=== PATIENT | male | born 1955 | race Hispanic/Latino ===

== ENCOUNTER 2019-12-26 10:51 | Outpatient (RCR) | payer MEDICARE, SELFPAY ==
[2019-10-10 09:39] LABS: Basophils Percent Auto 0.2 % (0.2-1.2); Eosinophils Percent Auto 0.3 % (0-4.4); Hematocrit 41.2 % (42.0-52.0); Hemoglobin 14.3 g/dL (14.0-18.0); Immature Granulocyte Absolute 0.01 K/mm3 (0.00-0.031); Immature Granulocyte Percent A 0.2 % (0-0.5); Immature Platelet Fraction Pct 2.2 % (0.9-11.2); Lymphocytes Absolute Auto 1.11 K/mm3 (0.9-3.2); Lymphocytes Percent Auto 19.1 % (18.3-44.2); Mean Corpuscular HGB Conc 34.7 g/dl (32-36); Mean Corpuscular Hemoglobin 29.2 pg (26-34); Mean Corpuscular Volume 84.1 fl (80-100); Mean Platelet Volume 9.6 fl (7.4-10.4); Monocytes Absolute Auto 0.4 K/mm3 (0.1-0.6); Monocytes Percent Auto 6.6 % (2.6-8.5); Neutrophils Absolute Auto 4.3 K/mm3 (1.3-6.7); Neutrophils Percent Auto 73.6 % (45.5-73.1); Platelet Count Result 130 k/mm3 (150-375); Red Cell Distribution Width 13.1 % (11.5-14.5); White Blood Count 5.8 K/mm3 (4.5-10.0)
[2019-10-10 09:47] LABS: Alanine Aminotransferase 29 U/L (4-50); Albumin Level 4.2 g/dL (3.5-5.1); Alkaline Phosphatase 100 U/L (38-126); Aspartate Amino Transferase 28 U/L (17-59); Blood Urea Nitrogen 19 mg/dL (9-20); Carbon Dioxide 27 mmol/L (22-30); Chloride 104 mmol/L (98-107); Estimated Glomerular Filt Rate > 60; Glucose 213 mg/dL (75-110); Potassium 4.4 mmol/L (3.4-5.0); Sodium 140 mmol/L (137-145)
[2019-10-13 17:37] LABS: Tacrolimus Prograf 2.2 mcg/L
[2019-10-13 23:20] LABS: GGT 18 U/L (3-70)
[2019-12-26 11:29] LABS: Basophils Percent Auto 0.4 % (0.2-1.2); Eosinophils Absolute Auto 0.1 K/mm3 (0-0.3); Hemoglobin 13.7 g/dL (14.0-18.0); Immature Granulocyte Absolute 0.02 K/mm3 (0.00-0.031); Immature Granulocyte Percent A 0.4 % (0-0.5); Immature Platelet Fraction Pct 2.2 % (0.9-11.2); Lymphocytes Absolute Auto 1.47 K/mm3 (0.9-3.2); Lymphocytes Percent Auto 29.5 % (18.3-44.2); Mean Corpuscular HGB Conc 34.3 g/dl (32-36); Mean Corpuscular Hemoglobin 28.6 pg (26-34); Mean Corpuscular Volume 83.5 fl (80-100); Mean Platelet Volume 9.5 fl (7.4-10.4); Monocytes Absolute Auto 0.3 K/mm3 (0.1-0.6); Monocytes Percent Auto 6.8 % (2.6-8.5); Neutrophils Absolute Auto 3.1 K/mm3 (1.3-6.7); Neutrophils Percent Auto 61.9 % (45.5-73.1); Platelet Count Result 138 k/mm3 (150-375); Red Blood Count 4.79 M/mm3 (4.6-6.20); Red Cell Distribution Width 13.5 % (11.5-14.5)
[2019-12-26 11:39] LABS: Alanine Aminotransferase 25 U/L (4-50); Albumin Level 4.2 g/dL (3.5-5.1); Alkaline Phosphatase 83 U/L (38-126); Aspartate Amino Transferase 26 U/L (17-59); Bilirubin,Total 0.9 mg/dL (0.2-1.3); Blood Urea Nitrogen 17 mg/dL (9-20); Calcium 9.1 mg/dL (8.4-10.2); Carbon Dioxide 30 mmol/L (22-30); Chloride 102 mmol/L (98-107); Estimated Glomerular Filt Rate > 60; Glucose 194 mg/dL (75-110); Potassium 4.1 mmol/L (3.4-5.0); Sodium 138 mmol/L (137-145)
[2019-12-29 22:35] LABS: Tacrolimus Prograf 2.6 mcg/L
[2019-12-30 15:26] LABS: GGT 19 U/L (3-70)
== END 2020-01-08 23:59 | disposition home or self-care (01) ==
LOC: ANHLAB 10:51
PROVIDERS: PCP Family Medicine
DX: Z51.81 Encounter for therapeutic drug level monitoring (principal); Z94.4 Liver transplant status; Z79.899 Other long term (current) drug therapy
CPT/HCPCS: 36415; 80053; 80197; 82977; 85025; 85055

== ENCOUNTER 2020-04-29 08:53 | Outpatient (RCR) | payer MEDICARE, SELFPAY ==
[2020-04-29 09:26] LABS: Basophils Percent Auto 0.4 % (0.2-1.2); Eosinophils Absolute Auto 0.1 K/mm3 (0-0.3); Hemoglobin 13.6 g/dL (14.0-18.0); Immature Granulocyte Absolute 0.01 K/mm3 (0.00-0.031); Immature Granulocyte Percent A 0.2 % (0-0.5); Lymphocytes Absolute Auto 1.42 K/mm3 (0.9-3.2); Lymphocytes Percent Auto 28.9 % (18.3-44.2); Mean Corpuscular HGB Conc 34.9 g/dl (32-36); Mean Corpuscular Hemoglobin 29.1 pg (26-34); Mean Corpuscular Volume 83.5 fl (80-100); Mean Platelet Volume 9.4 fl (7.4-10.4); Monocytes Absolute Auto 0.4 K/mm3 (0.1-0.6); Monocytes Percent Auto 7.9 % (2.6-8.5); Neutrophils Percent Auto 61.6 % (45.5-73.1); Platelet Count Result 147 k/mm3 (150-375); Red Blood Count 4.67 M/mm3 (4.6-6.20); Red Cell Distribution Width 13.4 % (11.5-14.5); White Blood Count 4.9 K/mm3 (4.5-10.0)
[2020-04-29 09:42] LABS: Alanine Aminotransferase 25 U/L (4-50); Albumin Level 4.2 g/dL (3.5-5.1); Alkaline Phosphatase 98 U/L (38-126); Aspartate Amino Transferase 23 U/L (17-59); Blood Urea Nitrogen 22 mg/dL (9-20); Carbon Dioxide 28 mmol/L (22-30); Chloride 106 mmol/L (98-107); Estimated Glomerular Filt Rate > 60; Glucose 215 mg/dL (75-110); Potassium 4.3 mmol/L (3.4-5.0); Sodium 141 mmol/L (137-145)
[2020-05-03 12:36] LABS: GGT 23 U/L (3-70)
[2020-05-03 21:58] LABS: Tacrolimus Prograf 2.4 mcg/L
== END 2020-07-28 23:59 | disposition home or self-care (01) ==
LOC: ANHLAB 08:53
PROVIDERS: PCP Family Medicine; Visit Provider Internal Medicine Gastroenterology
DX: Z51.81 Encounter for therapeutic drug level monitoring (principal); Z94.4 Liver transplant status; Z79.899 Other long term (current) drug therapy
CPT/HCPCS: 36415; 80053; 80197; 82977; 85025

== ENCOUNTER 2020-10-29 10:11 | Outpatient (RCR) | payer MEDICARE, SELFPAY ==
[2020-08-06 12:29] LABS: Basophils Percent Auto 0.5 % (0.2-1.2); Eosinophils Percent Auto 0.5 % (0-4.4); Hematocrit 39.6 % (42.0-52.0); Hemoglobin 13.9 g/dL (14.0-18.0); Immature Granulocyte Absolute 0.01 K/mm3 (0.00-0.031); Immature Granulocyte Percent A 0.2 % (0-0.5); Immature Platelet Fraction Pct 2.1 % (0.9-11.2); Mean Corpuscular HGB Conc 35.1 g/dl (32-36); Mean Corpuscular Hemoglobin 29.7 pg (26-34); Mean Corpuscular Volume 84.6 fl (80-100); Mean Platelet Volume 9.5 fl (7.4-10.4); Monocytes Absolute Auto 0.4 K/mm3 (0.1-0.6); Monocytes Percent Auto 6.3 % (2.6-8.5); Neutrophils Absolute Auto 4.1 K/mm3 (1.3-6.7); Neutrophils Percent Auto 67.5 % (45.5-73.1); Platelet Count Result 147 k/mm3 (150-375); Red Blood Count 4.68 M/mm3 (4.6-6.20); Red Cell Distribution Width 13.2 % (11.5-14.5)
[2020-08-06 12:40] LABS: Alanine Aminotransferase 42 U/L (4-50); Albumin Level 4.1 g/dL (3.5-5.1); Alkaline Phosphatase 93 U/L (38-126); Anion Gap 5 mmol/L (8-16); Aspartate Amino Transferase 28 U/L (17-59); Bilirubin,Total 0.7 mg/dL (0.2-1.3); Blood Urea Nitrogen 23 mg/dL (9-20); Calcium 9.1 mg/dL (8.4-10.2); Carbon Dioxide 31 mmol/L (22-30); Chloride 101 mmol/L (98-107); Estimated Glomerular Filt Rate > 60; Glucose 317 mg/dL (75-110); Potassium 4.3 mmol/L (3.4-5.0); Sodium 137 mmol/L (137-145)
[2020-08-09 19:06] LABS: Tacrolimus Prograf 2.3 mcg/L
[2020-08-10 05:46] LABS: GGT 23 U/L (3-70)
[2020-10-29 10:49] LABS: Basophils Percent Auto 0.5 % (0.2-1.2); Eosinophils Percent Auto 0.4 % (0-4.4); Hematocrit 40.9 % (42.0-52.0); Hemoglobin 14.1 g/dL (14.0-18.0); Immature Granulocyte Absolute 0.02 K/mm3 (0.00-0.031); Immature Granulocyte Percent A 0.4 % (0-0.5); Lymphocytes Absolute Auto 1.33 K/mm3 (0.9-3.2); Lymphocytes Percent Auto 23.5 % (18.3-44.2); Mean Corpuscular HGB Conc 34.5 g/dl (32-36); Mean Corpuscular Hemoglobin 28.4 pg (26-34); Mean Corpuscular Volume 82.5 fl (80-100); Mean Platelet Volume 8.9 fl (7.4-10.4); Monocytes Absolute Auto 0.3 K/mm3 (0.1-0.6); Neutrophils Absolute Auto 3.9 K/mm3 (1.3-6.7); Neutrophils Percent Auto 69.2 % (45.5-73.1); Platelet Count Result 144 k/mm3 (150-375); Red Blood Count 4.96 M/mm3 (4.6-6.20); Red Cell Distribution Width 13.4 % (11.5-14.5); White Blood Count 5.7 K/mm3 (4.5-10.0)
[2020-10-29 11:02] LABS: Alanine Aminotransferase 29 U/L (4-50); Albumin Level 4.3 g/dL (3.5-5.1); Alkaline Phosphatase 94 U/L (38-126); Anion Gap 4 mmol/L (8-16); Aspartate Amino Transferase 29 U/L (17-59); Bilirubin,Total 0.9 mg/dL (0.2-1.3); Blood Urea Nitrogen 20 mg/dL (9-20); Calcium 9.2 mg/dL (8.4-10.2); Carbon Dioxide 30 mmol/L (22-30); Chloride 103 mmol/L (98-107); Estimated Glomerular Filt Rate > 60; Glucose 216 mg/dL (75-110); Potassium 4.6 mmol/L (3.4-5.0); Sodium 137 mmol/L (137-145)
[2020-10-29 12:32] LABS: Vitamin D 25 Hydroxy 36.1 ng/mL
[2020-11-03 11:43] LABS: GGT 21 U/L (3-70)
== END 2020-11-04 23:59 | disposition home or self-care (01) ==
LOC: ANHLAB 10:11
PROVIDERS: PCP Family Medicine; Visit Provider Internal Medicine Gastroenterology
DX: Z94.4 Liver transplant status (principal); Z79.899 Other long term (current) drug therapy
CPT/HCPCS: 36415; 80053; 80197; 82306; 82977; 84443; 85025; 85055

== ENCOUNTER 2021-07-08 09:43 | Outpatient (CLI) | payer MEDICARE, SELFPAY ==
[2021-07-08 10:29] LABS: Basophils Percent Auto 0.4 % (0.2-1.2); Eosinophils Percent Auto 0.4 % (0-4.4); Hemoglobin 13.9 g/dL (14.0-18.0); Immature Granulocyte Absolute 0.01 K/mm3 (0.00-0.031); Immature Granulocyte Percent A 0.2 % (0-0.5); Immature Platelet Fraction Pct 2.4 % (0.9-11.2); Lymphocytes Absolute Auto 1.08 K/mm3 (0.9-3.2); Lymphocytes Percent Auto 21.6 % (18.3-44.2); Mean Corpuscular HGB Conc 34.8 g/dl (32-36); Mean Corpuscular Hemoglobin 29.8 pg (26-34); Mean Corpuscular Volume 85.8 fl (80-100); Mean Platelet Volume 9.3 fl (7.4-10.4); Monocytes Absolute Auto 0.3 K/mm3 (0.1-0.6); Monocytes Percent Auto 5.2 % (2.6-8.5); Neutrophils Absolute Auto 3.6 K/mm3 (1.3-6.7); Neutrophils Percent Auto 72.2 % (45.5-73.1); Platelet Count Result 154 k/mm3 (150-375); Red Blood Count 4.66 M/mm3 (4.6-6.20)
[2021-07-08 10:40] LABS: Alanine Aminotransferase 23 U/L (4-50); Albumin Level 4.3 g/dL (3.5-5.1); Alkaline Phosphatase 97 U/L (38-126); Anion Gap 9 mmol/L (8-16); Aspartate Amino Transferase 26 U/L (17-59); Bilirubin,Total 0.7 mg/dL (0.2-1.3); Blood Urea Nitrogen 19 mg/dL (9-20); Calcium 9.1 mg/dL (8.4-10.2); Carbon Dioxide 27 mmol/L (22-30); Chloride 102 mmol/L (98-107); Estimated Glomerular Filt Rate > 60; Glucose 351 mg/dL (65-110); Potassium 4.5 mmol/L (3.4-5.0); Sodium 138 mmol/L (137-145)
[2021-07-08 11:32] LABS: Vitamin D 25 Hydroxy 30.1 ng/mL
[2021-07-11 15:21] LABS: GGT 18 U/L (3-70)
[2021-07-11 18:15] LABS: Tacrolimus Prograf 1.6 mcg/L
== END 2021-07-08 09:44 | disposition home or self-care (01) ==
PROVIDERS: PCP Family Medicine; Referring Provider Internal Medicine Gastroenterology; Visit Provider Internal Medicine Endocrinology, Diabetes & Metabolism
DX: Z94.4 Liver transplant status (principal); Z48.23 Encounter for aftercare following liver transplant; Z51.81 Encounter for therapeutic drug level monitoring; Z79.899 Other long term (current) drug therapy; E11.9 Type 2 diabetes mellitus without complications; E55.9 Vitamin D deficiency, unspecified
CPT/HCPCS: 36415; 80053; 80197; 82306; 82977; 84443; 85025; 85055

== ENCOUNTER 2021-11-27 13:05 | Outpatient (RCR) | payer MEDICARE, SELFPAY ==
[2021-11-27 13:54] LABS: Basophils Percent Auto 0.3 % (0.2-1.2); Eosinophils Percent Auto 0.5 % (0-4.4); Hematocrit 38.3 % (42.0-52.0); Hemoglobin 13.3 g/dL (14.0-18.0); Immature Granulocyte Absolute 0.01 K/mm3 (0.00-0.031); Immature Granulocyte Percent A 0.2 % (0-0.5); Lymphocytes Absolute Auto 1.64 K/mm3 (0.9-3.2); Lymphocytes Percent Auto 27.9 % (18.3-44.2); Mean Corpuscular HGB Conc 34.7 g/dl (32-36); Mean Corpuscular Hemoglobin 29.6 pg (26-34); Mean Corpuscular Volume 85.1 fl (80-100); Mean Platelet Volume 9.7 fl (7.4-10.4); Monocytes Absolute Auto 0.4 K/mm3 (0.1-0.6); Monocytes Percent Auto 6.3 % (2.6-8.5); Neutrophils Absolute Auto 3.8 K/mm3 (1.3-6.7); Neutrophils Percent Auto 64.8 % (45.5-73.1); Platelet Count Result 148 k/mm3 (150-375); Red Cell Distribution Width 13.4 % (11.5-14.5); White Blood Count 5.9 K/mm3 (4.5-10.0)
[2021-11-27 13:56] LABS: Alanine Aminotransferase 25 U/L (4-50); Albumin Level 4.2 g/dL (3.5-5.1); Alkaline Phosphatase 101 U/L (38-126); Anion Gap 4 mmol/L (8-16); Aspartate Amino Transferase 23 U/L (17-59); Bilirubin,Total 0.7 mg/dL (0.2-1.3); Blood Urea Nitrogen 13 mg/dL (9-20); Calcium 8.8 mg/dL (8.4-10.2); Carbon Dioxide 27 mmol/L (22-30); Chloride 104 mmol/L (98-107); Estimated Glomerular Filt Rate > 60; Glucose 256 mg/dL (65-110); Potassium 4.2 mmol/L (3.4-5.0); Sodium 135 mmol/L (137-145)
[2021-11-27 14:38] LABS: Vitamin D 25 Hydroxy 34.4 ng/mL
[2021-11-29 06:31] LABS: GGT 18 U/L (3-70)
[2021-11-29 21:24] LABS: Tacrolimus Prograf 2.9 mcg/L
== END 2022-02-25 23:59 | disposition home or self-care (01) ==
LOC: ANHLAB 13:05
PROVIDERS: PCP Family Medicine; Visit Provider Internal Medicine Endocrinology, Diabetes & Metabolism
DX: E11.9 Type 2 diabetes mellitus without complications (principal); E55.9 Vitamin D deficiency, unspecified; Z79.4 Long term (current) use of insulin; Z79.899 Other long term (current) drug therapy; Z94.4 Liver transplant status
CPT/HCPCS: 36415; 80053; 80197; 82306; 82977; 84443; 85025

== ENCOUNTER 2022-05-05 12:03 | Outpatient (RCR) | payer MEDICARE, SELFPAY ==
[2022-05-05 12:35] LABS: Basophils Percent Auto 0.3 % (0.2-1.2); Eosinophils Percent Auto 0.3 % (0-4.4); Hematocrit 38.2 % (42.0-52.0); Hemoglobin 13.1 g/dL (14.0-18.0); Immature Granulocyte Absolute 0.01 K/mm3 (0.00-0.031); Immature Granulocyte Percent A 0.2 % (0-0.5); Immature Platelet Fraction Pct 3.3 % (0.9-11.2); Lymphocytes Absolute Auto 1.72 K/mm3 (0.9-3.2); Mean Corpuscular HGB Conc 34.3 g/dl (32-36); Mean Corpuscular Volume 84.7 fl (80-100); Mean Platelet Volume 9.2 fl (7.4-10.4); Monocytes Absolute Auto 0.4 K/mm3 (0.1-0.6); Monocytes Percent Auto 6.4 % (2.6-8.5); Neutrophils Absolute Auto 3.8 K/mm3 (1.3-6.7); Neutrophils Percent Auto 63.8 % (45.5-73.1); Platelet Count Result 151 k/mm3 (150-375); Red Blood Count 4.51 M/mm3 (4.6-6.20); Red Cell Distribution Width 14.1 % (11.5-14.5); White Blood Count 5.9 K/mm3 (4.5-10.0)
[2022-05-05 12:42] LABS: Alanine Aminotransferase 18 U/L (6-50); Albumin Level 4.2 g/dL (3.5-5.1); Alkaline Phosphatase 90 U/L (38-126); Anion Gap 4 mmol/L (8-16); Aspartate Amino Transferase 21 U/L (17-59); Bilirubin,Total 0.7 mg/dL (0.2-1.3); Blood Urea Nitrogen 18 mg/dL (9-20); Calcium 8.7 mg/dL (8.4-10.2); Carbon Dioxide 26 mmol/L (22-30); Chloride 109 mmol/L (98-107); Estimated Glomerular Filt Rate > 60; Glucose 170 mg/dL (65-110); Potassium 4.4 mmol/L (3.4-5.0); Sodium 139 mmol/L (137-145)
[2022-05-08 14:59] LABS: Tacrolimus Prograf 2.4 mcg/L
[2022-05-09 04:59] LABS: GGT 14 U/L (3-70)
== END 2022-08-03 23:59 | disposition home or self-care (01) ==
LOC: ANHLAB 12:03
PROVIDERS: PCP Family Medicine; Visit Provider Internal Medicine Gastroenterology
DX: Z94.4 Liver transplant status (principal); Z79.899 Other long term (current) drug therapy
CPT/HCPCS: 36415; 80053; 80197; 82977; 85025; 85055

== ENCOUNTER 2023-03-06 13:53 | Outpatient (RCR) | payer MEDICARE, SELFPAY ==
[2023-03-06 15:27] LABS: Basophils Percent Auto 0.3 % (0.2-1.2); Eosinophils Percent Auto 0.7 % (0-4.4); Hematocrit 39.4 % (42.0-52.0); Hemoglobin 13.5 g/dL (14.0-18.0); Immature Granulocyte Absolute 0.02 K/mm3 (0.00-0.031); Immature Granulocyte Percent A 0.3 % (0-0.5); Immature Platelet Fraction Pct 3.2 % (0.9-11.2); Lymphocytes Absolute Auto 1.84 K/mm3 (0.9-3.2); Lymphocytes Percent Auto 31.7 % (18.3-44.2); Mean Corpuscular HGB Conc 34.3 g/dl (32-36); Mean Corpuscular Hemoglobin 29.3 pg (26-34); Mean Corpuscular Volume 85.5 fl (80-100); Mean Platelet Volume 9.4 fl (7.4-10.4); Monocytes Absolute Auto 0.4 K/mm3 (0.1-0.6); Monocytes Percent Auto 6.2 % (2.6-8.5); Neutrophils Absolute Auto 3.5 K/mm3 (1.3-6.7); Neutrophils Percent Auto 60.8 % (45.5-73.1); Platelet Count Result 153 k/mm3 (150-375); Red Blood Count 4.61 M/mm3 (4.6-6.20); Red Cell Distribution Width 13.9 % (11.5-14.5); White Blood Count 5.8 K/mm3 (4.5-10.0)
[2023-03-06 15:39] LABS: Alanine Aminotransferase 26 U/L (6-50); Albumin Level 4.3 g/dL (3.5-5.1); Alkaline Phosphatase 90 U/L (38-126); Anion Gap 5 mmol/L (8-16); Aspartate Amino Transferase 25 U/L (17-59); Bilirubin,Total 0.7 mg/dL (0.2-1.3); Blood Urea Nitrogen 17 mg/dL (9-20); Calcium 8.7 mg/dL (8.4-10.2); Carbon Dioxide 30 mmol/L (22-30); Chloride 103 mmol/L (98-107); Estimated Glomerular Filt Rate > 60; Glucose 160 mg/dL (65-110); Potassium 4.6 mmol/L (3.4-5.0); Sodium 138 mmol/L (137-145)
[2023-03-09 15:36] LABS: Tacrolimus Prograf 3.7 mcg/L
[2023-03-11 01:47] LABS: GGT 17 U/L (3-70)
== END 2023-06-04 23:59 | disposition home or self-care (01) ==
LOC: ANHLAB 13:53
PROVIDERS: PCP Family Medicine
DX: Z94.4 Liver transplant status (principal); Z79.899 Other long term (current) drug therapy
CPT/HCPCS: 36415; 80053; 80197; 82977; 85025; 85055

== ENCOUNTER 2024-02-03 09:15 | Outpatient (CLI) | payer MEDICARE, SELFPAY ==
[2024-02-03 09:52] LABS: Basophils Percent Auto 0.4 % (0.2-1.2); Eosinophils Percent Auto 0.6 % (0-4.4); Hematocrit 40.6 % (42.0-52.0); Immature Granulocyte Absolute 0.01 K/mm3 (0.00-0.031); Immature Granulocyte Percent A 0.2 % (0-0.5); Lymphocytes Percent Auto 30.9 % (18.3-44.2); Mean Corpuscular HGB Conc 34.5 g/dl (32-36); Mean Corpuscular Hemoglobin 29.1 pg (26-34); Mean Corpuscular Volume 84.4 fl (80-100); Mean Platelet Volume 9.7 fl (7.4-10.4); Monocytes Absolute Auto 0.3 K/mm3 (0.1-0.6); Monocytes Percent Auto 5.6 % (2.6-8.5); Neutrophils Absolute Auto 3.2 K/mm3 (1.3-6.7); Neutrophils Percent Auto 62.3 % (45.5-73.1); Platelet Count Result 152 k/mm3 (150-375); Red Blood Count 4.81 M/mm3 (4.6-6.20); Red Cell Distribution Width 13.7 % (11.5-14.5); White Blood Count 5.2 K/mm3 (4.5-10.0)
[2024-02-03 10:10] LABS: Alanine Aminotransferase 25 U/L (6-50); Albumin Level 4.4 g/dL (3.5-5.1); Alkaline Phosphatase 135 U/L (38-126); Anion Gap 8 mmol/L (4-12); Aspartate Amino Transferase 21 U/L (17-59); Bilirubin,Total 1.2 mg/dL (0.2-1.3); Blood Urea Nitrogen 17 mg/dL (9-20); Calcium 8.9 mg/dL (8.4-10.2); Carbon Dioxide 24 mmol/L (22-30); Chloride 105 mmol/L (98-107); Cholesterol 127 mg/dL (0-200); Estimated Glomerular Filt Rate > 60; Glucose 329 mg/dL (65-110); HDL Direct 43 mg/dL; Sodium 137 mmol/L (137-145); Triglycerides 76 mg/dL (<150)
[2024-02-03 10:21] LABS: LDL Cholesterol Direct 74 mg/dL
[2024-02-03 10:41] LABS: Microalbumin Urine Random 19.8 mg/L (0-16.7)
[2024-02-03 10:43] LABS: Creatinine Urine 295.3 mg/dL; MALB Creatinine Ratio 6.7 mg/g (0-30)
== END 2024-02-03 09:16 | disposition home or self-care (01) ==
PROVIDERS: PCP Family Medicine
DX: E11.22 Type 2 diabetes mellitus with diabetic chronic kidney disease (principal); Z79.4 Long term (current) use of insulin; E55.9 Vitamin D deficiency, unspecified
CPT/HCPCS: 36415; 80053; 80061; 82043; 82306; 84443; 85025

== ENCOUNTER 2024-05-08 09:27 | Outpatient (RCR) | payer MEDICARE, SELFPAY ==
[2024-05-08 09:56] LABS: Hematocrit 37.5 % (42.0-52.0); Hemoglobin 13.2 g/dL (14.0-18.0); Mean Corpuscular HGB Conc 35.2 g/dl (32-36); Mean Corpuscular Hemoglobin 29.7 pg (26-34); Mean Corpuscular Volume 84.5 fl (80-100); Mean Platelet Volume 9.6 fl (7.4-10.4); Platelet Count Result 131 k/mm3 (150-375); Red Blood Count 4.44 M/mm3 (4.6-6.20); Red Cell Distribution Width 13.4 % (11.5-14.5); White Blood Count 3.9 K/mm3 (4.5-10.0)
[2024-05-08 10:15] LABS: Alanine Aminotransferase 15 U/L (6-50); Albumin Level 4.2 g/dL (3.5-5.1); Alkaline Phosphatase 95 U/L (38-126); Anion Gap 11 mmol/L (4-12); Aspartate Amino Transferase 19 U/L (17-59); Bilirubin,Total 0.9 mg/dL (0.2-1.3); Blood Urea Nitrogen 16 mg/dL (9-20); Calcium 8.6 mg/dL (8.4-10.2); Carbon Dioxide 26 mmol/L (22-30); Chloride 100 mmol/L (98-107); Estimated Glomerular Filt Rate > 60; Glucose 264 mg/dL (65-110); Potassium 4.1 mmol/L (3.4-5.0); Sodium 137 mmol/L (137-145)
[2024-05-11 09:14] LABS: Tacrolimus Prograf 3.9 mcg/L
[2024-05-11 13:12] LABS: GGT 13 U/L
== END 2024-08-06 23:59 | disposition home or self-care (01) ==
LOC: ANHLAB 09:27
PROVIDERS: PCP Family Medicine; Visit Provider Internal Medicine Gastroenterology
DX: Z94.4 Liver transplant status (principal)
CPT/HCPCS: 36415; 80053; 80197; 82977; 85027

== ENCOUNTER 2025-01-01 09:27 | Outpatient (RCR) | payer MEDICARE, MEDICAID, SELFPAY ==
[2024-12-04 11:12] LABS: Basophils Percent Auto 0.4 % (0.2-1.2); Eosinophils Absolute Auto 0.1 K/mm3 (0-0.3); Eosinophils Percent Auto 2.4 % (0-4.4); Hematocrit 39.9 % (42.0-52.0); Hemoglobin 14.3 g/dL (14.0-18.0); Immature Granulocyte Absolute 0.01 K/mm3 (0.00-0.031); Immature Granulocyte Percent A 0.2 % (0-0.5); Immature Platelet Fraction Pct 3.4 % (0.9-11.2); Lymphocytes Absolute Auto 1.22 K/mm3 (0.9-3.2); Lymphocytes Percent Auto 22.3 % (18.3-44.2); Mean Corpuscular HGB Conc 35.8 g/dl (32-36); Mean Corpuscular Hemoglobin 30.1 pg (26-34); Mean Platelet Volume 10.3 fl (7.4-10.4); Monocytes Absolute Auto 0.7 K/mm3 (0.1-0.6); Neutrophils Absolute Auto 3.4 K/mm3 (1.3-6.7); Neutrophils Percent Auto 61.7 % (45.5-73.1); Platelet Count Result 101 k/mm3 (150-375); Red Blood Count 4.75 M/mm3 (4.6-6.20); Red Cell Distribution Width 13.2 % (11.5-14.5); White Blood Count 5.5 K/mm3 (4.5-10.0)
[2024-12-04 12:18] LABS: Alanine Aminotransferase 22 U/L (6-50); Alkaline Phosphatase 93 U/L (38-126); Anion Gap 12 mmol/L (4-12); Aspartate Amino Transferase 26 U/L (17-59); Bilirubin,Total 0.8 mg/dL (0.2-1.3); Blood Urea Nitrogen 18 mg/dL (9-20); Calcium 8.9 mg/dL (8.4-10.2); Carbon Dioxide 22 mmol/L (22-30); Chloride 101 mmol/L (98-107); Estimated Glomerular Filt Rate > 60; Glucose 387 mg/dL (65-110); Potassium 3.9 mmol/L (3.4-5.0); Sodium 135 mmol/L (137-145)
[2024-12-05 04:19] LABS: GGT 20 U/L (3-70)
[2024-12-07 15:29] LABS: Tacrolimus Prograf 1.6 mcg/L
[2025-01-01 10:41] LABS: Alanine Aminotransferase 23 U/L (6-50); Albumin Level 4.2 g/dL (3.5-5.1); Alkaline Phosphatase 101 U/L (38-126); Anion Gap 11 mmol/L (4-12); Aspartate Amino Transferase 22 U/L (17-59); Bilirubin,Total 1.2 mg/dL (0.2-1.3); Blood Urea Nitrogen 15 mg/dL (9-20); Carbon Dioxide 26 mmol/L (22-30); Chloride 103 mmol/L (98-107); Estimated Glomerular Filt Rate > 60; Glucose 275 mg/dL (65-110); Potassium 4.6 mmol/L (3.4-5.0); Sodium 140 mmol/L (137-145)
[2025-01-01 11:05] LABS: Basophils Percent Auto 0.4 % (0.2-1.2); Eosinophils Percent Auto 0.7 % (0-4.4); Hematocrit 40.4 % (42.0-52.0); Hemoglobin 13.8 g/dL (14.0-18.0); Immature Granulocyte Absolute 0.02 K/mm3 (0.00-0.031); Immature Granulocyte Percent A 0.4 % (0-0.5); Lymphocytes Percent Auto 29.1 % (18.3-44.2); Mean Corpuscular HGB Conc 34.2 g/dl (32-36); Mean Corpuscular Hemoglobin 29.1 pg (26-34); Mean Corpuscular Volume 85.1 fl (80-100); Monocytes Absolute Auto 0.4 K/mm3 (0.1-0.6); Monocytes Percent Auto 6.9 % (2.6-8.5); Neutrophils Absolute Auto 3.4 K/mm3 (1.3-6.7); Neutrophils Percent Auto 62.5 % (45.5-73.1); Platelet Count Result 153 k/mm3 (150-375); Red Blood Count 4.75 M/mm3 (4.6-6.20); Red Cell Distribution Width 13.4 % (11.5-14.5); White Blood Count 5.5 K/mm3 (4.5-10.0)
[2025-01-02 04:37] LABS: GGT 21 U/L (3-70)
[2025-01-04 15:34] LABS: Tacrolimus Prograf 3.9 mcg/L
== END 2025-03-04 23:59 | disposition home or self-care (01) ==
LOC: ANHLAB 09:27
PROVIDERS: PCP Family Medicine; Visit Provider Internal Medicine Gastroenterology
DX: Z79.899 Other long term (current) drug therapy (principal); Z94.4 Liver transplant status
CPT/HCPCS: 36415; 80053; 80197; 82977; 85025; 85055

== ENCOUNTER 2025-06-05 08:33 | Outpatient (RCR) | payer MEDICARE, MEDICAID, SELFPAY ==
[2025-06-05 09:07] LABS: Hematocrit 41.8 % (42.0-52.0); Hemoglobin 14.3 g/dL (14.0-18.0); Immature Granulocyte Percent A 0.2 % (0-0.5); Immature Platelet Fraction Pct 2.8 % (0.9-11.2); Lymphocytes Absolute Auto 1.28 K/mm3 (0.9-3.2); Mean Corpuscular HGB Conc 34.2 g/dl (32-36); Mean Corpuscular Hemoglobin 29.4 pg (26-34); Mean Corpuscular Volume 85.8 fl (80-100); Nucleated Red Blood Cells Absolute Auto 0.000 K/mm3 (0.0-0.012); Nucleated Red Blood Cells Perc 0.0 % (0.0-0.2); Platelet Count Result 147 k/mm3 (150-375); Red Blood Count 4.87 M/mm3 (4.6-6.20); White Blood Count 4.6 K/mm3 (4.5-10.0)
[2025-06-05 09:28] LABS: Alanine Aminotransferase 41 U/L (6-50); Albumin Level 4.4 g/dL (3.5-5.1); Alkaline Phosphatase 100 U/L (38-126); Anion Gap 9 mmol/L (4-12); Aspartate Amino Transferase 33 U/L (17-59); Bilirubin,Total 1.0 mg/dL (0.2-1.3); Blood Urea Nitrogen 32 mg/dL (9-20); Calcium 9.0 mg/dL (8.4-10.2); Carbon Dioxide 26 mmol/L (22-30); Chloride 104 mmol/L (98-107); Estimated Glomerular Filt Rate > 60; Glucose 285 mg/dL (65-110); Potassium 4.8 mmol/L (3.4-5.0); Sodium 139 mmol/L (137-145); Total Protein 7.7 g/dL (6.3-8.2)
[2025-06-06 09:07] LABS: GGT 22 IU/L (0-65)
[2025-06-09 03:07] LABS: Tacrolimus (FK506), Blood 3.2 ng/mL (5.0-20.0)
== END 2025-09-03 23:59 | disposition home or self-care (01) ==
LOC: ANHLAB 08:33
PROVIDERS: PCP Family Medicine; Visit Provider Internal Medicine Gastroenterology
DX: Z51.81 Encounter for therapeutic drug level monitoring (principal); Z79.899 Other long term (current) drug therapy; Z94.4 Liver transplant status
CPT/HCPCS: 36415; 80053; 80197; 82306; 82607; 82977; 84439; 84443; 84481; 85025; 85055; 86376

== ENCOUNTER 2025-06-05 08:38 | Outpatient (CLI) | payer MEDICARE, MEDICAID, SELFPAY ==
--- OUTSIDE RECORDS SUMMARY | 2025-06-05 08:43 | XMS_ITS | Continuity of Care Document ---
Author Organization [facility] Address [address] [place] [address] Phone Care Team Providers Care Supervisor Benzene Refining Name Role Phone Bradley Munson MD Unavailable Unavailable Allergies, Adverse Reactions, Alerts Substance Reaction Status Criticality No Known Allergies Active No Inform ation Medications Medication Instructions Dosage Effective Dates (start - stop) Status Comments Januvia 100 mg tablet take 1 tablet by o ral route every day 100 MG - Active Lantus Solostar 100 unit/mL (3 mL) subcutaneous insulin pen inject by subcutaneous route as per insulin protocol 0.00 - Active Procedures Procedure Date OFFICE/OUTPATIENT VISIT, [facility] OFFICE/OUTPATIENT VISIT, [facility] Advance Directives Directive Yes / No Effective Date File Name No Information Encounters Encounter Description Practice Location Reason(s) For Visit Diagnoses Date Provider Providers Copied on Encounter OFFICE/OUTPA TIENT VISIT, [facility], [address] [place], [id number], tel:[phone] [facility], [place] renal injury1 (chief complaint) DM1 (chief complaint) platelet (chief complaint) ThrombocytopeniaTyp e 2 diabetes mellitus w/o complicationChronic kidney disease, stage 3 (moderate) 5 Arpit Huerta. [address], [place], [id number] , [place]. tel:[phone] Referring Provider: Bradley Munson, [address] [place] [address], [id number]. tel:[phone] OFFICE/OUTPA TIENT VISIT, [facility], [address] [employer] [place], [place], [id number], tel:[phone] [facility] abd pain (chief complaint) anemia (chief complaint) LFT (chief complaint) DM (chief complaint) Dietary surveillance and counselingBrittle diabetesAnemiaDiarr shreya Sep-2 5 Arpit Huerta. [address], [address], [place], [place], [id number] , [place]. tel:[phone] Referring Provider: Sarah Richardson [address], [place], [place], [id number]. tel:[phone] Family History Family Member Type Diagnosis Age At Onset Mother Problem (finding) Alive and well Father Problem (finding) of unkonwn reason Brother Problem (finding) Alive and well Payers Payer name Insurance type Covered democrat ID Authoriza tion(s) No Information Social History Type Description Quantity Date Captured Comments Alcohol Use Details No Caffeine Use Details Unknown Tobacco Use Status Never smoked tobacco 2014 Smoking Status Never smoker Sex Female Vital Signs Date / Time: Height Weight BMI Pulse Rate Blood Pressure Temperature Respiratory Rate Body Surface Area Head Circumference BMI percentile Pulse Ox Inhaled Ox 11:57 AM 167.64 cm 178.00 lbs 28.7 3 kg/m eter (2) 63 /min 117/73 mm[Hg] 98.2 F 16 /min Chief Complaint And Reason For Visit From encounter dated '08/15/2015 09:30'. renal injury1 (chief complaint). Description: Pt has been having a lot of diarrhea an vomting and he ended with prerenal injury and was admited to [facility] with IVF fluid. He also has elevated LFT . Pt was found to be anemic but his lab test prior to hospitalization was ok. Pt denies any vomting or diarrhea now. Pt is drinking water and eating ok DM1 (chief complaint). Description: Pt takes lantus and novolog and januvia and his A1c is wellc ontrolled. Pt states that his BG is around 80-130s. Pt denies any hypoglcyemia platelet (chief complaint). Description: Pt has mildly low platelet. Pt denies any bruinsnig or bleeding Plan Of Treatment Date Type Action Status Referral Ordered: Carlin Alexandra (related to Chronic kidney disease, stage 3 (moderate)) ordered Referral Referred To: Carlin Alexandra [address] [facility] [address] [place], [place], [phone] Ordered: Referrals: Carlin Alexandra. Evaluate and treat ordered History Of Present Illness Encounter Date Complaint History Of Prese nt Illness DM1 Pt takes lantus and novolog and januvia and his A1c is wellc ontrolled. Pt states that his BG is around 80-130s. Pt denies any hypoglcyemia platelet Pt has mildly lo w platelet. Pt denies any bruinsnig or bleeding renal injury1 Pt has been havi ng a lot of diarrhea an vomting and he ended with prerenal injury and was admited to [facility] with IVF fluid. He also has elevated LFT . Pt was found to be anemic but his lab test prior to hospitalization was ok. Pt denies any vomting or diarrhea now. Pt is drinking water and eating ok abd pain Pt has complicat ed history. 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 Pt recently admited to hospital for diarrhea. His Ct benign and also his stool cutlure is negative. Pt is on cipro and flaygl. His diarrhea resolved now. Pt denies any abd pain anemia Additional infor mation: Pt is mildly anemic on lab. Pt denies any GI blood loss. LFT He has mildly el evated LFT. He does not have hepatitis. PT denies any abd pain now. DM Pt has DM. Pt ta kes alnatus and novolog and also januvia. Pt sees endo at [facility]. He states that his BG is around 80-100. He denies any numbnes Instructions Date Instruction Additional Infor mation Prescribed Activity and Exercise Education Related to Dietary Surveillance and Counseling Prescribed Diet Educ ation/Lifestyle Education Regarding Diet Related to Dietary Surveillance and Counseling Assessments Type Assessment Date assessment Thrombocytopenia assessment Type 2 diabetes mellitus w/o com plication Oct-26-2015 assessment Chronic kidney disease, stage 3 (moderate) Mental Status Date Cognitive Assessment Orientation - Isabela ed to time, place, person, situation.
--- OUTSIDE RECORDS SUMMARY | 2025-06-05 08:44 | XMS_ITS | Clinical Summary ---
Author Organization [facility] Address [address] [place] [address] Phone Care Team Providers Care Sales Merchandise Associate Name Role Phone Kaylan Alejandre MD Primary Care Provider + Sarah Macias MD Unavailable [phone] Dang Flores RN Unavailable [phone] Allergies No known active allergies Medications aspirin 81 mg tablet TAKE ONE TABLET BY MOUTH EVERY DAY DIRECTED . 04/19/20 11 Active ergocalciferol, vitamin D2, (VITAMIN D2 ORAL) Take by mouth 25mcg qd Active Ultra Thin Lancets 30 gauge misc USE TO TEST BLOOD SUGAR THREE TIMES DAILY 08/24/20 23 Active blood glucose diagnostic (glucose blood) stripIndication s:Type 2 diabetes mellitus with chronic kidney disease, with long-term current use of insulin, unspecified CKD stage (HCC) Use to test blood sugar 3 times daily 300 each 3 01/06/20 25 Active blood glucose diagnostic (glucose blood) stripIndication s:Type 2 diabetes mellitus with chronic kidney disease, with long-term current use of insulin, unspecified CKD stage (HCC) Use to test blood sugar 3 times daily 300 strip 3 01/06/20 25 Active blood-glucose meter (True Metrix Glucose Meter) miscIndications :Type 2 diabetes mellitus with chronic kidney disease, with long-term current use of insulin, unspecified CKD stage (HCC) USE TO TEST BLOOD SUGAR THREE TIMES DAILY 1 each 01/06/20 25 Active insulin aspart niacinamide (FIASP) 100 unit/mL vial for injectionIndica tions:Type 2 diabetes mellitus with hyperglycemia, with long-term current use of insulin (HCC) Inject Fiasp to base of 8 units with meal + sliding scale of 1:25 > 150 mg/dL. Max daily dose 45 units daily 50 mL 6 01/06/20 25 Active lancets miscIndications :Type 2 diabetes mellitus with chronic kidney disease, with long-term current use of insulin, unspecified CKD stage (HCC) Use the lancets to check blood sugar 3 times daily 300 each 3 01/06/20 25 Active LANTUS 100 unit/mL vial for injectionIndica tions:Type 2 diabetes mellitus with hyperglycemia, with long-term current use of insulin ([facility]) ADMINISTER 34 UNITS UNDER THE SKIN DAILY. 40 mL 3 01/06/20 25 Active SITagliptin phosphate (Januvia) 100 mg tabletIndicatio ns:Controlled type 2 diabetes mellitus with chronic kidney disease, with long-term current use of insulin, unspecified CKD stage TAKE 1 TABLET BY MOUTH DAILY 30 tablet 04/06/20 25 Active tacrolimus 1 mg immediate-relea se capsuleIndicati ons:Encounter for aftercare following liver transplant ([facility]) Take 3 capsules (3 mg total) by mouth 2 (two) times a day 540 capsule 3 04/12/20 25 Active insulin syringe-needle U-100 (BD Insulin Syringe Ultra-Fine) 0.5 mL 31 gauge x 5/16 syringeIndicati ons:Type 2 diabetes mellitus without complication, with long-term current use of insulin ([facility]) USE TO INJECT INSULIN 4 TIMES DAILY 360 each 3 05/24/20 25 Active insulin syringe-needle U-100 0.5 mL 31 gauge x 5/16 syringeIndicati ons:Type 2 diabetes mellitus without complication, with long-term current use of insulin ([facility]) Use 4 times daily 360 each 3 08/13/20 23 025 Discontinued Active Problems Patient Care Coordination No te Formatting of this note migh t be different from the original. Per call with Jessika 08/27/23 pt prefers you call her or marybel with updates/requests. Per Jessika pt does not require an curtain mender the majority of the time. Will leave 08/28/23 appt marked as needing one until able to clarify with provider. Lab Name: [facility] Phone: Timeframe orders are good for: 1 year Last orders sent to lab on: 12/01/2024 ([place]) Standing order: CBC w/diff, CMP, GGT, Tacrolimus Bi-weekly Problem Noted Date Diagnosed Date Encounter for long-term (cur rent) use of high-risk medication 08/22/2022 Has immunity to COVID-19 virus 08/22/2021 Overview (08/22/2021): Pfizer vaccine 05/11/2021, 01/29/2021 Assessment & Plan (09/17/2022 8:24 AM DIRECTOR OF MARKET RESEARCH): Fully vaccinated, eligible for booster. Assessment & Plan (08/22/2021 7:56 AM CDT): Pfizer vaccine 05/11/2021, 01/29/2021 Thrombocytopenia 03/25/2020 Anemia 03/25/2020 Erectile disorder due to medical condition in ma le 01/29/2019 Assessment & Plan (01/30/2019 8:24 AM CDT): Need to check testosterone level. He may benefit from Viagra Vitamin D deficiency 07/16/2018 Assessment & Plan (09/20/2022 10:13 AM DIRECTOR OF MARKET RESEARCH): Continue long-term supplement Assessment & Plan (08/23/2021 1:39 PM CDT): Continue long-term supplement Assessment & Plan (09/30/2020 11:59 AM DIRECTOR OF MARKET RESEARCH): Continue long-term supplement Assessment & Plan (03/30/2020 10:48 AM CDT): Continue supplement Assessment & Plan (08/20/2019 8:55 AM CDT): Needs chronic supplementation Assessment & Plan (01/30/2019 8:26 AM CDT): On daily supplement, need to check level Assessment & Plan (07/17/2018 9:58 AM CDT): No longer on supplement. Needs follow-up labs Type 2 diabetes mellitus with renal complication 03/27/2018 Assessment & Plan (09/20/2022 10:14 AM DIRECTOR OF MARKET RESEARCH): A1c within target. Some mealtime fluctuations, but unable to make safe adjustments without firm glucose data. Assessment & Plan (08/23/2021 1:38 PM CDT): Glucoses high, particularly during the day in the evenings so needs adjustments in his insulins Assessment & Plan (09/30/2020 12:00 PM DIRECTOR OF MARKET RESEARCH): Glucose high overall, and needs mealtime adjustments plus sliding scale. Maintain a reasonable margin of safety Assessment & Plan (03/30/2020 10:54 AM CDT): Glucoses above target at times also low symptoms in the afternoons. He needs more basal insulin but less mealtime during the day, in order to maintain a good margin of safety. The afternoon symptoms suggest low glucoses, but could be cardiac so he will let me know if these episodes recur despite improved levels Assessment & Plan (08/20/2019 8:55 AM CDT): Needed a more reliable glucose meter. We will continue current management, maintaining a good level of safety Assessment & Plan (01/30/2019 8:27 AM CDT): Glucoses tend to go up overnight, so he would benefit from changing his Lantus to bedtime. Also needs some follow-up labs Assessment & Plan (07/17/2018 9:12 AM CDT): History of renal impairment. 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 He has done well post transplant and currently has normal liver chemistries. I did not make any changes to his immunosuppression at this time. He is going to get labs done today and should continue with labs every 2-3 months. Patient is overweight with BMI 33. He walks a lot, drinks regular soda occassionally. Discussed the importance of weight loss and to increase water intake to 64 oz daily. He will return to clinic in 2 years. Assessment & Plan (09/20/2022 10:16 AM DIRECTOR OF MARKET RESEARCH): On steroids, immunosuppressants affecting glycemic control Assessment & Plan (09/30/2020 11:58 AM DIRECTOR OF MARKET RESEARCH): On steroids, immunosuppressants affecting glycemic control Assessment & Plan (03/30/2020 10:48 AM CDT): On steroids time immunosuppressants that affect glucose management Assessment & Plan (01/29/2019 12:45 PM CDT): No longer on steroids. Continues immunosuppressants Assessment & Plan (10/01/2018 12:29 PM DIRECTOR OF MARKET RESEARCH): I reviewed his most recent liver biochemistries from March, which showed good allograft function. His tacrolimus trough level is acceptable. He will continue with his current immunosuppressive doses of 2 mg twice daily and continue with routine laboratory monitoring. Assessment & Plan (07/17/2018 9:57 AM CDT): On immunosuppressants Alcohol dependence in remission 12/20/2010 Hypertension 12/03/2007 Assessment & Plan (08/23/2021 1:37 PM CDT): Blood pressure is somewhat high, so I will start losartan 50 mg daily pending follow-up with his other doctors Assessment & Plan (01/29/2019 12:44 PM CDT): Blood pressure within target, managed by other doctors. Assessment & Plan (07/17/2018 9:11 AM CDT): Blood pressure within target Resolved Problems Problem Noted Date Diagnosed Date Resolved Date Influenza vaccine needed 09/29/202001/2022 Assessment & Plan (09/30/2020 11:59 AM DIRECTOR OF MARKET RESEARCH): Flu shot Healthcare maintenance 10/01/201808/18 Assessment & Plan (10/01/2018 12:27 PM DIRECTOR OF MARKET RESEARCH): He is up-to-date on colon cancer screening, having had a colonoscopy in 2014 which showed no polyps. Obesity with body mass index 30 or greater 09/25/2017 08/22/2022 Hepatic failure 01/08/2017 08/22/2022 Overview (05/24/2022): Computed MELD-Na score unavailable. Necessary lab results were not found in the last year. Computed MELD score unavailable. Necessary lab results were not found in the last year. Stage 3 chronic kidney disease 10/05/2015 08/22/2022 Assessment & Plan (08/23/2021 1:39 PM CDT): Need to minimize risk of hypoglycemia Assessment & Plan (09/30/2020 11:59 AM DIRECTOR OF MARKET RESEARCH): Need to minimize risk of hypoglycemia Assessment & Plan (08/20/2019 8:54 AM CDT): Increased risk for hypoglycemia Assessment & Plan (07/17/2018 9:11 AM CDT): Need to minimize risk of hypoglycemia Abnormal liver function tests 09/14/2015 08/22/2022 Encounters Date Type Department Care Team Description 05/31/2025 Orders Only [facility] Endocrinology Metabolism and Lipid [address] [facility] Medicine [address] [place] [address] [place] [id number] Lucita Heaton PA Type 2 diabetes mellitus with hyperglycemia, with long-term current use of insulin (HCC) (Primary Dx) 05/31/2025 Telephone [facility] Endocrinology Metabolism and Lipid [address] [facility] Medicine [address] [place] [address] [place] [id number] Morelia Lawrence RMA Referral Request 05/11/2025 Telephone [facility] [address] [place] [address] Veronica Felix LCSW 05/10/2025 3:30 PM CDT Office Visit [facility] Endocrinology Metabolism and Lipid [address] [facility] [address] [place] [address] [place] [address] Lucita Heaton PA Type 2 diabetes mellitus with hyperglycemia, with long-term current use of insulin (HCC) (Primary Dx); Vitamin D deficiency; Encounter for aftercare following liver transplant (HCC); Insurance coverage problems 04/14/2025 Telephone [facility] Transplant Liver [address] [facility] [address] [phone] [place] [address] Margot Rebollar 04/12/2025 Orders Only [facility] Transplant Liver [address] [facility] [address] [phone] [place] [address] Dang Flores, MELBA Encounter for aftercare following liver transplant (HCC) 04/12/2025 Telephone [facility] Transplant Liver [address] [facility] [address] [phone] [place] [address] Maryanne David 04/06/2025 Orders Only [facility] Endocrinology Metabolism and Lipid [address] [facility] Medicine [address] [place] [address] [place] [address] Morelia Lawrence RMA Controlled type 2 diabetes mellitus with chronic kidney disease, with long-term current use of insulin, unspecified CKD stage (HCC) 04/06/2025 Telephone [facility] Transplant Liver [address] [facility] [address] [phone] [place] [address] Bina Curiel, MELBA 04/06/2025 Telephone [facility] Transplant Liver [address] [facility] [address] [phone] [place] [address] Gina Walker 03/18/2025 Telephone [facility] Endocrinology Metabolism and Lipid [address] [facility] Medicine [address] [place] [address] [place] [address] Morelia Lawrence RMA Patient Assistance Notice 03/05/2025 Telephone [facility] Endocrinology Metabolism and Lipid [address] [facility] [address] [place] [address] [place] [address] Kusum Kirkpatrick CMA from Last 3 Months Immunizations Immunization Administration Dates Next Due Influenza, Quadrivalent, Xiomara l Culture-based MDCK, Preservative Free, Antibiotic Free, Intramuscular 09/29/2020 Influenza, Quadrivalent, Spl it, Preservative Free, Intramuscular 09/06/2016 Influenza, Trivalent, Preservative Free, Intramu scular 09/06/2016 Influenza, Unspecified 07/13/2009 Pfizer SARS-CoV-2 Monovalent Vaccination (12+ Yrs) PURPLE 05/11/2021,01/29/2021 Pneumococcal Conjugate PCV 13 01/08/2017, 017 Surgical History Surgery Date Site/Laterality Comments [place] ESPHGOSCOPY FLEX W/BAND LIGATION ESOPHGL VARICES Esophagoscopy Rigid With Band Ligation Of Esophageal Varices - (Added by TW Conv) [place] TRANSFUSION BLOOD/BLOOD COMPONENTS Blood Transfusion (___ Ml) - (Added by TW Conv) [place] LVR ALTRNSPLJ ORTHOTOPIC PRTL/WHL DON ANY AGE Liver Transplant - Orthotopic - (Added by TW Conv) Medical History Medical History Date Comments Cirrhosis of liver (HCC) Cirrhos is - OLTx (Added by TW Conv) Personal history of other di seases of the digestive system History of esophageal varice s - (Added by TW Conv) 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 - (Added by TW Conv) Influenza vaccine needed 09/29/2020 Family History Medical History Relation Name Comments No Known Problems Father No Known Problems Mother Relation Name Status Comments Father Mother Social History Tobacco Use Types Packs/Day Years Used Date Smoking Tobacco: Never Smokeless Tobacco: Never Sex and Gender Information Value Date Recorded Sex Assigned at Not on file Legal Sex Male 7:11 AM DIRECTOR OF MARKET RESEARCH Gender Identity Not on file Sexual Orientation Not on file Obstetrics History Last Filed Vital Signs Vital Sign Reading Time Taken Comments Blood Pressure 124/76 05/10/2025 3:05 PM CDT Pulse 60 05/10/2025 3:05 PM CDT Temperature 36.8 C (98.3 F) 05/10/2025 3:05 PM CDT Respiratory Rate - - Oxygen Saturation 100% 08/12/2015 10:58 AM CDT Inhaled Oxygen Concentration - - Weight 87.8 kg (193 lb 9.6 oz) 05/10/2025 3:05 P M CDT Height 167.6 cm (5' 6) 05/10/2025 3:05 PM CDT Body Mass Index 31.25 05/10/2025 3:05 PM CDT Plan of Treatment Health Maintenance Due Date Last Done Comments Albumin Creatinine Ratio, Urine 1955 Depression Screening 1955 Fall Risk Assessment 1955 Prostate Cancer Screening-PSA 1955 Dilated Eye Exam 1955 Foot Exam 1955 DTaP/Tdap/Td Vaccine (1 - Tdap) 02/02/1967 Hepatitis B Screening 02/02/1974 Zoster Vaccine (1 of 2) 02/02/1975 Lipid Panel 08/08/2016 08/08/2015 Pneumococcal vaccine 65+ (2 of 2 - PPSV23, PCV20, or PCV21) 03/05/2017 01/08/2017, 01/08/2017 Well Visit 65+ 02/02/2021 Covid-19 Vaccine (3 - Pfizer risk series) 06/08/2021 05/11/2021, 01/29/2021 Influenza Vaccine (#1) 2025 , 09/06/2016, 09/06/2016, Additional history exists Colon Cancer Screening-Colonoscopy 08/10/2025 08/10/2015 Hemoglobin A1C 11/10/2025 05/10/2025, 03/0 12/2024, 12/30/2023, Additional history exists eGFR 01/01/2026 01/01/2025, 02/01/2025, 08/28/2023 Colon Cancer Screening-CT Colonography Discontinued 08/10/2015 Colon Cancer Screening-DNA Stool Discontinued 08/10/20 15 Colon Cancer Screening-FIT Discontinued 08/10/2015 Colon Cancer Screening-Sigmoidoscopy Discontinued 08/10/2015 Hepatitis C Screening Completed 08/10/2015 Procedures Procedure Name Priority Date/Time Associated Diagnosis Comments POCT HEMOGLOBIN A1C Routine 05/10/2025 3 :11 PM CDT Type 2 diabetes mellitus with hyperglycemia, with long-term current use of insulin (HCC) POCT GLUCOSE Routine 05/10/2025 3:09 PM CDT Type 2 diabetes mellitus with hyperglycemia, with long-term current use of insulin (HCC) COMPREHENSIVE METABOLIC PANEL Routine 01/01/2025 SERUM HEPATITIS PANEL Routine 08/10/2015 9:33 PM CDT COLONOSCOPY REPORT 08/10/2015 SERUM LIPID PANEL Routine 08/08/2015 4:0 9 AM CDT from Last 3 Months or Most Recently Relevant to Health Maintenance Results * (ABNORMAL) POCT hemoglobin A1c (05/10/2025 3:11 PM CDT) Hemoglobin A1C, POC 8.8(A) 4.0 - 5.6 % Blood 05/10/2025 3:11 PM CDT Lucita ROMERO POINT OF CARE TEST ORDERA BLES Final Result * POCT glucose (05/10/2025 3:09 PM CDT) Pathologist [facility] Glucose Blood, POC 214 Normal Fasting 70 - 100, Random <200 mg/dL Blood 05/10/2025 3:09 PM CDT Lucita ROMERO POINT OF CARE TEST ORDERA BLES Final Result * (ABNORMAL) Comprehensive metabolic panel (01/01/2025) Pathologist [facility] SCRIBED Sodium 140 137 - 145 mmol/L TXP NO LAB FOUND SCRIBED Potassium 4.6 3.4 - 5 mmol/L TXP NO LAB FOUND SCRIBED Chloride 103 98 - 107 mmol/L TXP NO LAB FOUND SCRIBED Carbon Dioxide 26 22 - 30 mmol/L TXP NO LAB FOUND SCRIBED Urea Nitrogen (BUN) 15 9 - 20 mg/dl TXP NO LAB FOUND SCRIBED Creatinine 0.90 0.7 - 1.3 mg/dl TXP NO LAB FOUND SCRIBED Glucose 275(A) 65 - 110 mg/dl TXP NO LAB FOUND SCRIBED Calcium 9 8.4 - 10.2 mg/dl TXP NO LAB FOUND SCRIBED Bilirubin 1.2 0.2 - 1.3 mg/dl TXP NO LAB FOUND SCRIBED Plasma Protein 8 6.3 - 8.2 g/dl TXP NO LAB FOUND SCRIBED Albumin 4.2 3.5 - 5.1 g/dl TXP NO LAB FOUND SCRIBED Alkaline Phosphatase 101 38 - 126 Units/L TXP NO LAB FOUND SCRIBED Alanine Transaminase (ALT) 23 6 - 50 Units/L TXP NO LAB FOUND SCRIBED Aspartate Transaminase (AST) 22 17 - 59 Units/L TXP NO LAB FOUND SCRIBED eGFR in NonAfrican Togolese >60 >=60 TXP NO LAB FOUND Blood 01/01/2025 us Historical Provider LAB BLOOD ORDERABLES Edit ed Result - Final TXP NO LAB FOUND * Serum Hepatitis panel (08/10/2015 9:33 PM CDT) HBV surface ag Negative NEG HISTO RICAL RESULTS HCV ab Negative NEG HISTORICAL RESULTS Comment: Interpretive Data If confirmation is required, call Laboratory Customer Service to request sample to be sent to [facility] for Hepatitis C Virus (HCV) RNA Detection and Quantitation by Real-Time Reverse Supervisor Coke Handling-PCR (RT-PCR). Current interpretive data was last revised on 2012 HBV core ab, IgM Negative NEG HIS TORICAL RESULTS Comment: Interpretive Data If test is reported as Equivocal, new sample should be drawn for testing. Current interpretive data was last revised on 2008. HAV ab, IgM Negative NEG HISTORIC AL RESULTS Comment: Interpretive Data If test is reported as Equivocal, new sample should be drawn in two weeks for testing. Current interpretive data was last revised on 2008. Serum 08/10/2015 9:33 PM CDT Wally Singh MD LAB BLOOD ORDERABLES Tram l Result HISTORICAL RESULTS * COLONOSCOPY REPORT (08/10/2015) Anatomical Region Laterality Modality Other Narrative 08/10/2015 Ordered by an unspecified provider. Historical Provider GI PROCEDURE ORDERABLES F inal Result * (ABNORMAL) Serum lipid panel (08/08/2015 4:09 AM CDT) Cholesterol 77 0 - 200 mg/dl HISTORICAL RESULTS Comment: Interpretive Data Desirable: <200 mg/dL Borderline high: 200-239 mg/dL High: >240 mg/dL Literature Reference: National Cholesterol Education Program (NCEP) Expert Panel on Detection, Evaluation, and Treatment of High Blood Cholesterol in Adults (Adult Treatment Panel III). Circulation 2004; 110:227. Current interpretive data was last revised on 2005. Triglycerides 77 0 - 150 mg/dl HISTORICAL RESULTS Comment: Interpretive Data Desirable: < 150 mg/dL Borderline High: 150 - 199 mg/dL High: > 200 mg/dL Literature Reference: See Cholesterol Current interpretive data was last revised on 07. HDL 26(L) 40 - 199 mg/dl HISTORICAL RESULTS Comment: Interpretive Data Less than 40 mg/dL - low; A major risk factor for heart disease. Greater than or equal to 60 mg/dL - High; considered protective of heart disease. Literature Reference: See Cholesterol Current interpretive data was last revised on 2008. LDL 36 0 - 129 mg/dl HISTORICAL RESULTS Comment: Interpretive Data Optimal: < 100 mg/dL Near Optimal: 100 - 129 mg/dL Borderline High: 130 - 159 mg/dL High: > 160 mg/dL Literature Reference: See Cholesterol Current interpretive data was last revised on 07. Non-HDL cholesterol, calculated 51 mg/dl HISTORICAL RESULTS Comment: Interpretive Data When triglycerides are >200 mg/dL, non-HDL C is a secondary target of therapy, with a goal 30 mg/dL higher than the identified LDL-C goal. Reference: See Cholesterol Reference. Current interpretive data was last revised 2012. Serum 08/08/2015 4:09 AM CDT us Lee Cason MD LAB BLOOD ORDERABLES Fin al Result HISTORICAL RESULTS from Last 3 Months or Most Recently Relevant to Health Maintenance Additional Health Concerns Infection Onset Date Last Indicated C. difficile Comment:Backloaded August 09, 2011 12/22/2007 12/22/2007 Insurance MEDICARE MEDICARE [facility] MEDICARE [facility] Care Teams Sales Merchandise Associate Relationship Specialty Start Date End Date Kaylan Alejandre MD PCP - General Family Medicine 10/01/18 Sarah Macias MD Referring Physician Endocrinology Diabetes & Metabolism 08/20/19 Dang Flores RN Electrical And Radio Aircraft Mechanic Electrical And Radio Aircraft Mechanic 03/01/20
--- OUTSIDE RECORDS SUMMARY | 2025-06-05 08:44 | XMS_ITS ---
Author Organization [facility] Address [address] [place] [address] Phone Care Team Providers Care Administrative Specialist Name Role Phone Kaylan Alejandre MD Primary Care Provider + Sarah Macias MD Unavailable [phone] Dang Flores RN Unavailable [phone] Transplant Episode Liver Recipient [facility] ([place], [place]) [facility] Organ Received: Liver Transplanted on 10/22/2007 Marked as Active Follow-up on 10/22/2007 Liver CoordinatorDang Flores RN Fax: N/A Email: N/A [place] Organ Diagnosis Organ Primary Contributory Liver Alcoholic Cirrhosis Retransplant Diagnosis Organ Primary Contributory Liver Alcoholic Cirrhosis Donor Information Organ ABO Source Meets Risk Criteria HLA Match Mismatches Cross Match Liver Transplanted O DBD No A: B: DR: Liver Donor Serology Results Anti-CMV CMV IgG: Positive EBV IgG EBV VCA IgG: Negative Anti-HBcAb HBC Total: Negative HBsAg HBsAg: Negative HBV DNA No results on file Anti-HCV HCV: Negative Anti-HIV I/II No results on file Anti-HTLV I/II HTLV: Negative RPR/VDRL RPR: Negative EBV IgM EBV VCA IgM: Negative HBsAb No results on file EBNA No results on file Toxoplasma No results on file SARS CoV-2 No results on file Care Team Name Role Phone Fax Email Dang Flores RN Liver Coordinator N/A N/A Dang Flores RN Teacher Learning Disabled [phone] N/A N/A Josefina Sanchez RN Secondary Coordinator Secondary Liver Coordinator [phone] N/A N/A Kate Doe Bitumastic Applier [phone] N/A N/A Events Post-Transplant Pre-Transplant Admitted: 10/21/2007 Referred: 07/21/2007 Transplanted: 10/22/2007 Evaluation began: 7 Discharged: 10/28/2007 Center waitlisted: 7
--- OUTSIDE RECORDS SUMMARY | 2025-06-05 08:44 | XMS_ITS | Encounter Summary ---
Author Organization [facility] Address [address] [place] [address] Phone Care Team Providers Care Security Agent Name Role Phone Kaylan Alejandre MD Primary Care Provider + Sarah Macias MD Unavailable [phone] Dang Flores RN Unavailable [phone] Encounter Details Date Type Department Care Team (Late st Contact Info) Description 03/05/2025 Telephone [facility] Endocrinology Metabolism and Lipid [address] [facility] Advanced [facility] [address] [place] [address] [place] [address] Kusum Kirkpatrick CMA Social History Tobacco Use Types Packs/Day Years Used Date Smoking Tobacco: Never Smokeless Tobacco: Never Sex and Gender Information Value Date Recorded Sex Assigned at Not on file Legal Sex Male 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 difficile Comment:Backloaded August 09, 2011 12/22/2007 12/22/2007 documented as of this encounter Care Teams Security Agent Relationship Specialty Start Date End Date Kaylan Alejandre MD PCP - General Family Medicine 10/01/18 Sarah Macias MD Referring Physician Endocrinology Diabetes & Metabolism 08/20/19 Dang Flores, RN Paper Processing Machine Helper Paper Processing Machine Helper 03/01/20 documented as of this encounter
[2025-06-05 10:16] LABS: Vitamin B12 437.0 pg/mL (239-931)
[2025-06-06 08:08] LABS: TSH 1.980 uIU/mL (0.450-4.500)
== END 2025-06-05 08:39 | disposition home or self-care (01) ==
PROVIDERS: PCP Family Medicine
DX: E11.22 Type 2 diabetes mellitus with diabetic chronic kidney disease (principal); Z79.4 Long term (current) use of insulin
CPT/HCPCS: 36415; 82306; 82607; 84439; 84443; 84481; 86376